=== PATIENT | female | born 1980 | race Caucasian/White ===

== ENCOUNTER → 2020-07-03 16:16 | Outpatient (CLI) | payer BC, SELFPAY ==
[2020-07-04 09:33] LABS: Adenovirus,PCR Not Detected (NotDetected); Bordetella Pertussis Not Detected (NotDetected); Chlamydophila Pneumoniae, PCR Not Detected (NotDetected); Coronavirus 229E Not Detected (NotDetected); Coronavirus NL63 Not Detected (NotDetected); Coronavirus OC43 Not Detected (NotDetected); Coronovirus HKU1,PCR Not Detected (NotDetected); Human Metapneumovirus Not Detected (NotDetected); Influenza A, PCR Not Detected (NotDetected); Influenza AH1, 2009 Not Detected (NotDetected); Influenza AH1, PCR Not Detected (NotDetected); Influenza AH3,PCR Not Detected (NotDetected); Influenza B, PCR Not Detected (NotDetected); Mycoplasma Pneumoniae, PCR Not Detected (NotDetected); Parainfluenza 1, PCR Not Detected (NotDetected); Parainfluenza 2, PCR Not Detected (NotDetected); Parainfluenza 3, PCR Not Detected (NotDetected); Parainfluenza 4, PCR Not Detected (NotDetected); Respiratory Syncytial Virus Not Detected (NotDetected); Rhinovirus/Enterovirus Not Detected (NotDetected)
[2020-07-04 11:05] LABS: Coronavirus 19, PCR Detected (NotDetected)
== END ==
PROVIDERS: PCP Nurse Practitioner; Visit Provider Nurse Practitioner
DX: Z20.828 Contact with and (suspected) exposure to other viral communicable diseases (principal); U07.1 COVID-19
CPT/HCPCS: 87581; 87633; 87798; U0003; U0004

== ENCOUNTER → 2022-04-03 10:22 | Outpatient (CLI) | payer OTHER, SELFPAY ==
--- NOTE | 2022-04-03 10:31 | XR_ITS ---
FINAL REPORT CLINICAL HISTORY: LET FOOT PAIN FINDINGS: Left ankle Three views were obtained. Again identified is an acute fracture involving the proximal aspect of the 5th metatarsal. No ankle fracture is identified. The joint spaces appear normal. No soft tissue abnormality is identified. IMPRESSION: Fracture of the 5th metatarsal. Reviewed, Interpreted and Dictated by Oz Monzon III, MD Transcribed by Halle Holt Authenticated and [facility]
--- NOTE | 2022-04-03 10:31 | XR_ITS ---
FINAL REPORT CLINICAL HISTORY: LEFT FOOT PAIN FINDINGS: Left foot Three views were obtained. There is an acute fracture involving the proximal aspect of the 5th metatarsal. The joint spaces appear normal. No soft tissue abnormality is identified. IMPRESSION: Fracture as above. Reviewed, Interpreted and Dictated by Oz Monzon III, MD Transcribed by Halle Holt Authenticated and [facility]
== END ==
LOC: RAD 10:27
PROVIDERS: PCP Family Medicine; Visit Provider Family Medicine
DX: M79.672 Pain in left foot (principal); M25.572 Pain in left ankle and joints of left foot
CPT/HCPCS: 73610; 73630

== ENCOUNTER → 2022-04-17 10:18 | Outpatient (CLI) | payer OTHER, SELFPAY ==
--- NOTE | 2022-04-17 10:36 | XR_ITS ---
FINAL REPORT CLINICAL HISTORY: 5TH METATARSAL FX COMPARISON: April 03, 2022 FINDINGS: LEFT FOOT: Three views of the left foot were obtained. There is a transverse fracture at the base of the 5th metatarsal with up to 3 mm of distraction. There is mild lateral displacement of the proximal fracture fragment which is stable. There is no callus formation. The joint spaces are intact. There is no soft tissue abnormality. IMPRESSION: Fracture at the base of the 5th metatarsal without callus formation. Reviewed, Interpreted and Dictated by Oz Monzon III, MD Transcribed by Sue Cao Authenticated and . [facility]
--- NOTE | 2022-04-17 10:36 | XR_ITS ---
FINAL REPORT CLINICAL HISTORY: .5TH METATARSAL FX COMPARISON: April 03, 2022 FINDINGS: LEFT ANKLE: Three views of the left ankle were obtained. There is a transverse fracture at the base of the 5th metatarsal with up to 3 mm of distraction. The joint spaces and mortise are intact. There is no soft tissue abnormality. IMPRESSION: Fracture at the base of the 5th metatarsal. Reviewed, Interpreted and Dictated by Oz Monzon III, MD Transcribed by Sue Cao Authenticated and [facility]
== END ==
PROVIDERS: PCP Family Medicine; Visit Provider Family Medicine
DX: M79.672 Pain in left foot (principal); M25.572 Pain in left ankle and joints of left foot
CPT/HCPCS: 73610; 73630

== ENCOUNTER → 2022-05-14 09:24 | Outpatient (CLI) | payer OTHER, SELFPAY ==
--- NOTE | 2022-05-14 09:43 | XR_ITS ---
FINAL REPORT CLINICAL HISTORY: FX OF 5TH METATARSAL, FOLLOW-UP COMPARISON: 04/17/2022 FINDINGS: LEFT FOOT Three views demonstrate a transverse fracture of the proximal 5th metatarsal. Bony alignment is stable. There is no significant callus formation. No new bony abnormality is seen. IMPRESSION: Redemonstration of transverse fracture of the proximal 5th metatarsal. Reviewed, Interpreted and Dictated by Oz Monzon III, MD Transcribed by Laure Dubois Authenticated and . [facility]
== END ==
PROVIDERS: PCP Family Medicine; Visit Provider Family Medicine
DX: S92.335A Nondisplaced fracture of third metatarsal bone, left foot, initial encounter for closed fracture (principal)
CPT/HCPCS: 73630

== ENCOUNTER → 2022-05-15 16:19 | Outpatient (CLI) | payer OTHER, SELFPAY ==
--- NOTE | 2022-05-15 16:21 | MR_ITS ---
PROCEDURE INFORMATION: Exam: MR Left Lower Extremity Other Than Joint Without Contrast; Foot Exam date and time: 05/15/2022 4:28 PM Age: 41 years old Clinical indication: Pain; Foot; Left; Additional info: Pain, non healing FX TECHNIQUE: Imaging protocol: Magnetic resonance imaging of the Left lower extremity without contrast. Exam focused on the foot. COMPARISON: CR XR FOOT LT MIN 3V 05/14/2022 9:48 AM FINDINGS: Bones and cartilage: Marrow edema is identified involving the 5th metatarsal bone, with fracture of the 5th metatarsal base. This fracture is mildly displaced. Motion artifact limits this study. Small foci of STIR hyperintensity are seen within the calcaneus anteriorly, consistent with benign vascular remnants. No dislocation of the foot. Joint spaces: Small small effusions at the 1st through 5th MTP joints. Small effusions at the tibiotalar and subtalar joints. LIGAMENTS: Spring ligament complex: Fluid is seen within the spring ligament recess. Lisfranc ligament: No evidence of tear. TENDONS: Flexor tendons of foot: A subcentimeter cystic collection of fluid is identified adjacent to the flexor digitorum tendon, without visualized tendon tear. Tibialis posterior tendon: Mild tenosynovitis of the posterior tibialis tendon. Peroneal tendons: There is mild swelling adjacent to the peroneus brevis tendon, without visualized tear. The no visualized tear of the peroneus longus tendon. Extensor tendons of foot: No evidence of tear. Tibialis anterior tendon: Unremarkable as visualized. Achilles tendon: Minimal heterogeneous signal intensity of the Achilles tendon, consistent with tendinosis. Tarsal canal (Sinus tarsi): Small amount of fluid within the sinus tarsi. Soft tissues: Minimal fluid within the deep infrapatellar bursa. Mild soft tissue swelling of the lateral midfoot and proximal forefoot. Plantar fascia: Intact, as visualized. IMPRESSION: 1. Marrow edema is identified involving the 5th metatarsal bone, with fracture of the 5th metatarsal base. This fracture is mildly displaced. 2. Mild tenosynovitis of the posterior tibialis tendon. 3. Mild soft tissue swelling of the lateral midfoot and proximal forefoot. 4. Small effusions. 5. Additional findings described above.
== END ==
PROVIDERS: PCP Family Medicine; Visit Provider Podiatrist
DX: M79.672 Pain in left foot (principal); M67.88 Other specified disorders of synovium and tendon, other site; S86.312A Strain of muscle(s) and tendon(s) of peroneal muscle group at lower leg level, left leg, initial encounter; S92.352A Displaced fracture of fifth metatarsal bone, left foot, initial encounter for closed fracture; S93.402A Sprain of unspecified ligament of left ankle, initial encounter; T14.8XXA Other injury of unspecified body region, initial encounter
CPT/HCPCS: 73718

== ENCOUNTER → 2022-05-19 15:54 | Outpatient (CLI) | payer OTHER, SELFPAY ==
--- NOTE | 2022-05-19 16:05 | ECG_ITS ---
APPROVED REPORT Exam: Resting ECG HR:88 bpm ECG Measurements Heart Rate 88 AXES WA 143 P 47 QRSd 84 QRS 66 QT 363 T 37 QTc 409 Conclusion SINUS RHYTHM NONSPECIFIC T-WAVE ABNORMALITY BORDERLINE ECG UNCONFIRMED REPORT Electronically signed by : Bill Ellis MD 05/20/2022 21:10:26
--- NOTE | 2022-05-19 16:24 | XR_ITS ---
PROCEDURE INFORMATION: Exam: XR Chest Exam date and time: 05/19/2022 4:29 PM Age: 41 years old Clinical indication: Screening exam; Other screening; Additional info: Pre op; Smoker TECHNIQUE: Imaging protocol: Radiologic exam of the chest. Views: 2 views. COMPARISON: No relevant prior studies available. FINDINGS: Lungs: Unremarkable. No consolidation. Pleural spaces: Unremarkable. No pleural effusion. No pneumothorax. Heart/Mediastinum: Unremarkable. No cardiomegaly. Bones/joints: Unremarkable. IMPRESSION: No acute findings.
[2022-05-19 17:49] LABS: Basophils # 0.1 K/mm3 (0-0.2); Basophils % 1.1 % (0.1-2.0); Eosinophils # 0.3 K/mm3 (0.0-0.4); Eosinophils % 3.1 % (0.1-12.0); Hematocrit 42.3 % (37.0-47.0); Lymphocytes # 2.7 K/mm3 (0.7-4.5); Lymphocytes % 28.5 % (10-50); Mean Corpuscular Hemoglobin 31.4 pg (27.0-31.2); Mean Corpuscular Volume 95.2 fl (81-99); Mean Platelet Volume 8.2 fl (7.4-10.4); Monocytes # 0.5 K/mm3 (0.1-1.0); Neutrophils # 5.8 K/mm3 (1.8-7.8); Neutrophils % 62.4 % (37.0-80.0); Platelet Count 412 K/mm3 (142-424); Red Blood Count 4.45 M/mm3 (4.20-5.40); Red Cell Distribution Width 13.6 % (11.5-17.5); White Blood Count 9.3 K/mm3 (4.8-10.8)
[2022-05-19 18:39] LABS: Alanine Aminotransferase 18 U/L (12-78); Albumin Level 4.7 g/dl (3.5-5.0); Albumin/Globulin Ratio 1.8 (1.1-1.8); Alkaline Phosphatase 108 U/L (38-126); Anion Gap 14.2 mEq/L (5-15); Aspartate Amino Transferase 30 U/L (14-36); Bilirubin,Total 0.7 mg/dl (0.2-1.3); Blood Urea Nitrogen 14 mg/dl (7-17); Calcium 9.8 mg/dl (8.4-10.2); Carbon Dioxide 31 mmol/L (22.0-30.0); Chloride 97 mmol/L (98-107); Estimated Glomerular Filt Rate 80 ml/min (>60); GFR (African American) 97 ML/MIN (>60); Globulin 2.6 g/dL (1.3-3.2); Glucose 74 mg/dl (74-100); Potassium 4.2 mmoL/L (3.5-5.1); Sodium 138 mmol/L (136-145); Total Protein,Serum 7.3 g/dl (6.3-8.2)
[2022-05-19 22:54] LABS: Urine Pregnancy, HCG Qual. Negative (Negative)
== END ==
PROVIDERS: PCP Family Medicine; Visit Provider Podiatrist
DX: Z01.818 Encounter for other preprocedural examination (principal); Z20.822 Contact with and (suspected) exposure to COVID-19; M79.672 Pain in left foot; S92.352A Displaced fracture of fifth metatarsal bone, left foot, initial encounter for closed fracture; T14.8XXA Other injury of unspecified body region, initial encounter; S86.312A Strain of muscle(s) and tendon(s) of peroneal muscle group at lower leg level, left leg, initial encounter
CPT/HCPCS: 36415; 71046; 80053; 81025; 85025; 93005; C9803; U0003; U0005

== ENCOUNTER 2022-05-21 09:45 | Day surgery (SDC) | payer OTHER, SELFPAY ==
[2022-05-19 15:37] VITALS: BMI 26.2
[2022-05-21] VITALS (11 sets, daily range): BP systolic 94–147; BP diastolic 64–99; PULSE 68–124; RESP 8–18; TEMP 36.6–38; O2SAT 93–97
--- NOTE | 2022-05-21 11:18 | XR_ITS ---
FINAL REPORT CLINICAL HISTORY: sp 5th met ORIF COMPARISON: May 14, 2022 FINDINGS: 3 views of the left foot were obtained. There has been interval placement of a sideplate and screws securing a fracture fragment at the base of the 5th metatarsal. Overlying cast material obscures bony detail. There appears to be good anatomic alignment. IMPRESSION: Postoperative change of the base of the 5th metatarsal. Reviewed, Interpreted and Dictated by Srinivasa Felton MD Transcribed by Alex Mayberry Authenticated and [facility]
--- NOTE | 2022-05-21 11:23 | P.PN_ITS ---
[facility] Medical History Anxiety Depression History of gastroesophageal reflux (GERD) HTN (hypertension), benign Urinary tract infection Surgical History H/O: Family History Other Diabetes Hypertension Social History Smoking Status: Current every day smoker tobacco type: cigarettes packs per day: 1 alcohol intake: current substance use type: denies use current occupational status: employed Travel in the last 8 weeks: None [facility] Anesthesia Checklist Patient Identification Patient Identification: Arm Band and Verbal (Name & ) Structural Data Admitted From: Home Planned Operative Procedure/s: ORIF Consent for Planned Operative Procedure(s) Verified: Yes Verified Documents: Surgical Consent NPO Status Verified Time NPO: 00:00 Chart Verification Results Verified: CBC, BMP and HCG Additional verifications Anesthesia Reactions: Yes (N/V) Hx Blood Transfusions: No Blood Transfusion Reaction: No Airway Assessment C-Spine Mobility Assessed: Yes TMJ Mobility Assessed: Yes Dentition: Good Dentition Neurological Assessment Level of Consciousness: Awake Hx Seizures: No Numbness or tingling in extremities: No Anesthesia Plan Anesthesia Risk discussed: Yes Anesthesia Plan: Verified ASA Class: II Anesthesia Type: General w/block
--- NOTE | 2022-05-21 12:39 | SUR.OPER ---
LATE ENTRY [id number] family given an update by Karishma Bright RN
--- NOTE | 2022-05-21 12:57 | SUR.OPER ---
1257 family given an update by Scott Perera RN Dr. Foy notified that tourniquet time is one hour.
--- NOTE | 2022-05-21 13:52 | XR_ITS ---
FINAL REPORT CLINICAL HISTORY: ORIF LEFT 5TH METATARSAL IN OR FLUORO TIME-1.43 FINDINGS: Fluoroscopic guidance was provided for the operating services. Two spot films were provided. 1 minute 43 seconds of fluoroscopy time was utilized. IMPRESSION: 1 minute 43 seconds of fluoroscopy time. Reviewed, Interpreted and Dictated by Srinivasa Felton MD Transcribed by Alex Mayberry Authenticated and [facility]
--- NOTE | 2022-05-21 14:08 | SUR.OPER ---
LATE ENTRY 1320 family given an update by Delmis Way RN
--- NOTE | 2022-05-21 14:15 | EXP.OP.NOTE ---
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 Her first x-ray 04/03/2022 showed an acute left proximal phalanx fifth metatarsal fracture. She did see her PCP who put her in a fracture boot. After weeks of no healing or callus formation on x-ray he referred her for evaluation. MRI showed there is no callus to signify healing. Explained there is some fluid around the tendon without obvious tear/rupture. Discussed conservative or surgical treatment. Patient has had 7 weeks of failed conservative care. We discussed surgery. All risks and benefits were discussed including but not limited to: damage to blood vessels and nerves, bleeding, infection, wound complications, delayed, mal or non-union of bone, post-traumatic arthritis, need for further surgery, implant failure, need for removal of implant, prolonged or permanent swelling of the extremity, prolonged or permanent pain or deformity, recurrence of deformity, refracture, CRPS/RSD, DVT/PE, and anesthetic complications including . No guarantees were given. All questions fully answered. The patient verbalized understanding and agreed to proceed with surgery. Consent was obtained. Necessary labs and pre-op testing ordered: hcg, CBC, BMP, EKG, CXR, covid. Patient has fracture boot. Was dispensed crutches in office Thursday Operative findings:: Separate incision made over the peroneal tendon under the distal fibula. On the peroneus brevis tendon, there was an area about 1 cm tear not full thickness, no rupture noted. Tear was repaired with suture. Some tenosynovitis noted around the longus. Fifth metatarsal base fracture had some comminution. There was 2 main fracture fragments with 2 secondary fracture fragments which were comminuted. The bone quality was very poor at the fracture site. No evidence of infection. Due to the bone quality and the fact that it was a 7 weeks post injury, graft was utilized and the area was fixated with a plate. Operative note:: On this date and time patient was deemed an appropriate surgical candidate. A pre-operative popliteal regional nerve block was given by anesthesia. With informed consent signed, the patient was taken to the operating theater and positioned supine. General anesthesia induced. Tourniquet was applied to the left mid-calf @225mmHg. The left lower extremity was prepped and draped in normal sterile fashion. Left peroneal (brevis) repair, peroneus longus tenosynovectomy, application of amniotic graft: Incision was made under the distal fibula. Dissection with care to maintain surgical hemostasis and safely retract neurovascular structures. Peroneal tendons identified. The longus had some tenosynovitis noted. It was sharply excisionally debrided with 15 blade, forceps. The brevis tendon was identified and there was a less than 1 cm longitudinal tear noted. Tear was not full-thickness.Wounds were flushed with saline. Vicryl used to reapproximate the tear. A piece of graft was then cut and laid over the tear to prevent adhesions and aid in healing. 15 cc of 0.5% Marcaine plain given as ankle block. Left 5th Metatarsal ORIF, application of bone allograft: Attention was directed to the dorsal foot, where intra-op fluoroscopy was used to map out the 5th metatarsal on both the AP, MO and lateral views. Linear incision over the fifth metatarsal fracture site.
--- NOTE | 2022-05-21 14:32 | SUR.PHASEI ---
1425- detailed report called to terence fernandez in post op 1426- pt left in stable condition with terence fernadnez in post op at this time
--- NOTE | 2022-05-22 09:48 | P.PNANES_ITS ---
[facility] Anesthesia Record Part II Anesthesia Record Part II Discharge Time: 14:25 Destination: Surgical Day Care (OP Surgery) PACU nurse assessment reviewed?: Yes Patient Condition:: Good Anesthesia Complications:: None Swallowing reflex intact?: Yes Cyanosis?: No Blood Pressure: 144/71 Pulse Rate: 117 Temperature: 98.7 F Mental Status: Alert & Oriented Pain level:: 0 Nausea and/or vomitting:: None Intake, IV Amount: 0
[2022-05-22 09:50] VITALS: BP 144/71; PULSE 117; TEMP 37.1
== END 2022-05-21 15:15 | disposition home or self-care (01) ==
PROVIDERS: PCP Family Medicine; Visit Provider Podiatrist
PROC: (CPT 28485; principal; 2022-05-21 11:30)
DX: S92.352A Displaced fracture of fifth metatarsal bone, left foot, initial encounter for closed fracture (principal); F17.210 Nicotine dependence, cigarettes, uncomplicated; Z79.899 Other long term (current) drug therapy; I10 Essential (primary) hypertension; M67.88 Other specified disorders of synovium and tendon, other site; W19.XXXA Unspecified fall, initial encounter; S86.312A Strain of muscle(s) and tendon(s) of peroneal muscle group at lower leg level, left leg, initial encounter
CPT/HCPCS: 28485; 27659; 28086; 73620; 73630; 76000; 96374; C1713; C1776; J2405; Q4211

== ENCOUNTER → 2022-06-16 12:22 | Outpatient (CLI) | payer OTHER, SELFPAY ==
--- NOTE | 2022-06-16 12:28 | XR_ITS ---
FINAL REPORT CLINICAL HISTORY: post op lt foot f/u COMPARISON: May 2022 FINDINGS: LEFT FOOT Three views were obtained. There are postoperative changes of the proximal 5th metatarsal. There is a screw plate and multiple screws. There is increased callus formation lateral to the screw plate. IMPRESSION: Postoperative changes with adjacent increased callus formation. Reviewed, Interpreted and Dictated by Oz Monzon III, MD Transcribed by Alex Mayberry Authenticated and . [facility]
== END ==
PROVIDERS: PCP Family Medicine; Visit Provider Podiatrist
DX: M79.672 Pain in left foot (principal); R60.9 Edema, unspecified; S86.312D Strain of muscle(s) and tendon(s) of peroneal muscle group at lower leg level, left leg, subsequent encounter
CPT/HCPCS: 73630

== ENCOUNTER → 2022-06-16 13:39 | Outpatient (CLI) | payer OTHER, SELFPAY ==
[2022-06-16 15:18] LABS: Basophils # 0.1 K/mm3 (0-0.2); Basophils % 1.3 % (0.1-2.0); Eosinophils # 0.5 K/mm3 (0.0-0.4); Eosinophils % 4.7 % (0.1-12.0); Hematocrit 41.3 % (37.0-47.0); Hemoglobin 13.2 g/dL (12.2-16.2); Lymphocytes # 3.7 K/mm3 (0.7-4.5); Mean Corpuscular HGB Conc 31.9 g/dL (31.8-35.4); Mean Corpuscular Hemoglobin 29.9 pg (27.0-31.2); Mean Corpuscular Volume 93.6 fl (81-99); Mean Platelet Volume 8.9 fl (7.4-10.4); Monocytes # 0.5 K/mm3 (0.1-1.0); Monocytes % 4.8 % (1.7-9.3); Neutrophils # 4.7 K/mm3 (1.8-7.8); Neutrophils % 50.1 % (37.0-80.0); Platelet Count 454 K/mm3 (142-424); Red Blood Count 4.41 M/mm3 (4.20-5.40); Red Cell Distribution Width 13.3 % (11.5-17.5); White Blood Count 9.4 K/mm3 (4.8-10.8)
[2022-06-16 15:41] LABS: Chloride 100 mmol/L (98-107); Sodium 139 mmol/L (136-145)
[2022-06-16 15:42] LABS: Potassium 4.6 mmoL/L (3.5-5.1)
[2022-06-16 15:43] LABS: Erythrocyte Sedimentation Rate 14 mm/hr (0-20)
[2022-06-16 15:44] LABS: Alanine Aminotransferase 16 U/L (12-78); Alkaline Phosphatase 106 U/L (38-126); Aspartate Amino Transferase 37 U/L (14-36); Bilirubin,Total 0.5 mg/dl (0.2-1.3); Blood Urea Nitrogen 10 mg/dl (7-17); Estimated Glomerular Filt Rate 111 ml/min (>60); GFR (African American) 135 ML/MIN (>60)
[2022-06-16 15:45] LABS: Albumin Level 4.8 g/dl (3.5-5.0); Anion Gap 14.6 mEq/L (5-15); Calcium 9.1 mg/dl (8.4-10.2); Carbon Dioxide 29 mmol/L (22.0-30.0); Globulin 2.4 g/dL (1.3-3.2); Glucose 90 mg/dl (74-100); Total Protein,Serum 7.2 g/dl (6.3-8.2)
[2022-06-16 15:51] LABS: C-Reactive Protein 2.2 mg/L (0-4)
== END ==
PROVIDERS: PCP Family Medicine; Visit Provider Podiatrist
DX: T81.40XA Infection following a procedure, unspecified, initial encounter (principal)
CPT/HCPCS: 36415; 80053; 85025; 85651; 86140

== ENCOUNTER 2022-06-25 06:05 | Day surgery (SDC) | payer OTHER, SELFPAY ==
[2022-06-25] VITALS (7 sets, daily range): BP systolic 91–143; BP diastolic 67–99; PULSE 80–99; RESP 14–18; TEMP 36.3–43; O2SAT 94–100; BMI 25.7
[2022-06-25 06:24] LABS: Urine Pregnancy, HCG Qual. Negative (Negative)
--- NOTE | 2022-06-25 07:04 | P.PN_ITS ---
PFSH PFS Medical History Anxiety Depression History of gastroesophageal reflux (GERD) HTN (hypertension), benign Urinary tract infection Surgical History H/O foot surgery H/O: [place] teeth removed Family History Other Diabetes Hypertension Social History Smoking Status: Current every day smoker tobacco type: cigarettes packs per day: 1 pack-years: 20 alcohol intake: never substance use type: denies use current occupational status: unemployed Travel in the last 8 weeks: None caffeine: Yes [facility] Anesthesia Checklist Patient Identification Patient Identification: Arm Band and Verbal (Name & ) Structural Data Admitted From: Home Planned Operative Procedure/s: I & D Left foot Consent for Planned Operative Procedure(s) Verified: Yes NPO Status Verified Time NPO: 00:00 Chart Verification Results Verified: HCG Additional verifications Anesthesia Reactions: Yes (n/v) Hx Blood Transfusions: No Blood Transfusion Reaction: No Airway Assessment C-Spine Mobility Assessed: Yes TMJ Mobility Assessed: Yes Dentition: Good Dentition Neurological Assessment Level of Consciousness: Awake Hx Seizures: No Numbness or tingling in extremities: No Anesthesia Plan Anesthesia Risk discussed: Yes Anesthesia Plan: Verified ASA Class: II Anesthesia Type: MAC
--- NOTE | 2022-06-25 08:20 | EXP.OP.NOTE ---
Date of procedure: 06/25/22 Pre-op Diagnosis:: Left foot foreign body reaction Left foot allergic reaction Left foot cellulitis Status post left fifth metatarsal ORIF 05/21/2022 Post-op Diagnosis:: Same Procedure performed:: Left foot incision and drainage below fascia single bursa space ([id number]) Left foot I&D soft tissue abscess below deep fascia (2004) Removal of foreign body ([id number]) Wound debridement/scar revision Surgeon:: Lucila Foy DPM CIVIL GEOTECHNICAL ENGINEER:: Joni Babcock Anesthesia: MAC and local (0.5% marcaine plain) Estimated blood loss (mL): 10 Clinical Note:: Patient is a 41-year-old female who had left fifth metatarsal ORIF on 05/21/2022.? Patient reports continued redness pain and swelling to the incision site.? Infection markers are within normal limits. No labs that correlate with cellulitis. Discussed suture abscess and the possibility of an allergic reaction, foreign body reaction or skin irritation from the sutures. Discussed surgery for I&D and sutural removal with delayed primary closure with nonabsorbable sutures. X-rays reviewed and discussed with the patient. Conservative treatment discussed but not recommended as she has failed oral antibiotics, local wound care, NSAIDs, Medrol Dosepak and topical steroids. We discussed surgery. All risks and benefits were discussed including but not limited to: damage to blood vessels and nerves, bleeding, infection, wound complications, delayed, mal or non-union of bone, post-traumatic arthritis, need for further surgery, implant failure, need for removal of implant, prolonged or permanent swelling of the extremity, prolonged or permanent pain or deformity, CRPS/RSD, DVT/PE, and anesthetic complications including . No guarantees were given. All questions fully answered. The patient verbalized understanding and agreed to proceed with surgery. Consent was obtained. Operative findings:: The left lateral foot and ankle incisions have periincisional edema, erythema. No charo wound dehiscence noted. There was a previous suture abscess noted. The suture lines were opened and no purulence or drainage appreciated. The tissue did not look overly synovitic. Mild inflammatory tissue to the distal incision. 15 blade and forceps used to sharply excisionally debride inflammatory tissue through skin into/including subcutaneous tissue approximately 0.3 cm deep. A piece of the tissue was removed and sent for tissue culture. No deep tracking deep opening consistent with abscess. The skin and subcutaneous sutures were removed. A 0.2 x 0.2 x 0.5 cm incision was made into the deep fascia and the distal most incision. Again no tracking or deep signs of infection appreciated. Wound flushed with gentamicin irrigation. Skin and scar revised. At the time of the skin closure the edema and erythema was noted to be much improved. This was a case performed during the postoperative period unrelated to the ORIF, i.e. nothing done with the bone today. Unlikely an infectious process as the preoperative labs were all within normal limits with no elevated white count, ESR or CRP. Tissue did show evidence of some inflammation. Likely allergic reaction secondary to the suture. Operative note:: On this date and time patient was deemed an appropriate surgical candidate. With informed consent signed, the patient was taken to the operating theater and positioned supine. MAC anesthesia induced. Tourniquet was applied to the left mid-calf @225mmHg. Tourniquet not utilized/inflated. IV vancomycin infused. The left lower extremity was prepped and draped in normal sterile fashion. Left foot I&D, removal of foreign body: 30 cc of half percent Marcaine plain were infiltrated around the incision and an ankle block prior to start of the case. 15 blade and forceps used to make an incision along prior incision incisions x2. One incision was about 4 x 0.2 x 0.3 cm deep. The proximal incision was 2 x 0.2 x 0.3 cm deep. Dissection carried down
--- NOTE | 2022-06-25 08:21 | XR_ITS ---
FINAL REPORT CLINICAL HISTORY: Post op COMPARISON: June 16, 2022 FINDINGS: 3 views of the left foot were obtained. Postoperative changes are again seen involving the proximal 5th metatarsal. There is a screw plate and multiple screws. There is stable callus formation adjacent to the screw plate. There are questionable chronic fractures of the 2nd, 3rd, and 4th proximal phalanges. There is persistent lack of bony union of the proximal 5th metatarsal, stable from prior. IMPRESSION: Stable postoperative changes. Reviewed, Interpreted and Dictated by Oz Monzon III, MD Transcribed by Alex Mayberry Authenticated and [facility]
--- NOTE | 2022-06-25 10:03 | SUR.OPER ---
0800- pt updated of pt current status via terence szymanski in pre op
== END 2022-06-25 09:10 | disposition home or self-care (01) ==
PROVIDERS: PCP Family Medicine; Visit Provider Podiatrist
PROC: (CPT 28002; principal; 2022-06-25 07:30)
DX: T81.41XA Infection following a procedure, superficial incisional surgical site, initial encounter (principal); Y83.8 Other surgical procedures as the cause of abnormal reaction of the patient, or of later complication, without mention of misadventure at the time of the procedure; Y79.3 Surgical instruments, materials and orthopedic devices (including sutures) associated with adverse incidents; Z79.899 Other long term (current) drug therapy; F17.210 Nicotine dependence, cigarettes, uncomplicated
CPT/HCPCS: 28002; 28192; 73630; 81025; 87070; 87205; 96374; J3370

== ENCOUNTER 2022-07-05 00:36 | Emergency (ER) | payer OTHER, SELFPAY ==
[2022-07-05 00:49] VITALS: BP 163/96; PULSE 124; O2SAT 98
[2022-07-05 00:58] VITALS: BP 163/96; PULSE 122; RESP 18; TEMP 36.9; O2SAT 97; BMI 26.6
--- NOTE | 2022-07-05 01:18 | HMH.EDGENADL ---
Discharge Plan Disposition Patient Disposition: Home, Self-Care Condition: Good Chief Complaint: Wound/Laceration Prescriptions Prescriptions: No Action losartan-hydrochlorothiazide 50-12.5 mg tablet 1 tab PO DAILY triamcinolone acetonide 0.1 % cream 1 applic topical BID 21 Days Qty: 30 0RF sulfamethoxazole-trimethoprim [Bactrim DS] 800-160 mg tablet 1 tab PO BID 7 Days Qty: 14 0RF Rx Instructions: Start on 06/26/22 hydrocodone-acetaminophen 7.5-325 mg tablet 1 tab PO Q6H PRN (Reason: pain (scale score 7-10)) 5 Days Qty: 20 0RF ibuprofen 800 mg tablet 800 mg PO BID Qty: 60 3RF bupropion HCl 150 mg tablet extended release 24 hr 150 mg PO DAILY venlafaxine 225 mg tablet extended release 24hr 225 mg PO DAILY Referrals Follow up/Referrals: Shaun Henriquez MD [Primary Care Provider] - See instructions Clinical Impressions Clinical Impression: Status post left foot surgery Instructions Patient Instructions: How to Care for a Surgical Wound Discharge ED Provider: Manuel Dominguez General Adult HPI General Chief complaint: Wound/Laceration Stated complaint: Surgery on left foot, ? infection Time Seen by Provider: 07/05/22 00:58 Mode of Arrival: Ambulatory Source of Information: Patient Limitations: No Limitations Description of Symptoms (Recalled from ER Triage Doc. by RN): Pt had surgery on outer left side of left foot in May (10 days ago per pt). Pt was to see (who performed the surgery) on Sunday 07/08 to get her bandange removed. Bandage accidentally fell off tonight per pt and she was concerned with the redness she noticed in her incision. Also c/o white area around incision. History of Present Illness HPI narrative: 41yo F presents to the emergency department secondary to her bandage fall off after surgery on her foot. Reports surgery was [address] Foy. Patient is concerned because there is a very small area of white tissue on the edge of the suture line. Reports she had very similar appearance in the past and required a second surgery. No fever, systemic signs of illness Related Data Home Medications Medication Instructions Recorded Confirmed losartan 50 mg-hydrochlorothiazide 1 tab PO DAILY High blood pressure 08/08/19 07/01/22 12.5 mg tablet bupropion HCl 150 mg 24 hr tablet, 150 mg PO DAILY Anxiety 05/19/22 07/01/22 extended release venlafaxine 225 mg tablet,extended 225 mg PO DAILY . 06/25/22 07/01/22 release 24 hr Previous Rx's Medication Instructions Recorded ibuprofen 800 mg tablet 800 mg PO BID pain, mild #60 tabs 05/20/22 triamcinolone acetonide 0.1 % 1 applic topical BID cellulitis 3 06/16/22 topical cream weeks #30 grams sulfamethoxazole 800 1 tab PO BID redness 7 days #14 06/23/22 mg-trimethoprim 160 mg tablet tabs (Bactrim DS) hydrocodone 7.5 mg-acetaminophen 1 tab PO Q6H PRN pain (scale score 07/01/22 325 mg tablet 7-10) 5 days #20 tabs Allergies Allergy/AdvReac Type Severity Reaction Status Date / Time stratafix suture Allergy Uncoded 06/25/22 07:22 PFSH PFSH Medical History Anxiety Depression History of gastroesophageal reflux (GERD) HTN (hypertension), benign Urinary tract infection Surgical History H/O foot surgery H/O: [place] teeth removed Family History Other Diabetes Hypertension Social History Smoking Status: Current every day smoker tobacco type: cigarettes packs per day: 1 pack-years: 20 alcohol intake: never substance use type: denies use current occupational status: unemployed Travel in the last 8 weeks: None caffeine: Yes ROS Obtained: Yes Systems reviewed as appropriate & no additional complaints except as documented 10 point RO
--- NOTE | 2022-07-05 01:33 | PC.NURSE ---
Reapplied a sterile dressing to patients surgical site on left foot. Cleaned with hibacleanse with chlorahexadine and applied a xeroform dressing an absorbent sterile dressing. Once dressing was applied an kassandra wrap was applied to cover dressing. Patient tolerated well.
[2022-07-05 01:37] VITALS: BP 135/85; PULSE 99; RESP 18; TEMP 37; O2SAT 99
== END 2022-07-05 01:44 | disposition home or self-care (01) ==
PROVIDERS: Emergency Provider Family Medicine; PCP Family Medicine
DX: S91.302A Unspecified open wound, left foot, initial encounter (principal); Z98.890 Other specified postprocedural states; Z79.899 Other long term (current) drug therapy; F41.9 Anxiety disorder, unspecified; I10 Essential (primary) hypertension; F32.A Depression, unspecified; K21.9 Gastro-esophageal reflux disease without esophagitis; Z83.3 Family history of diabetes mellitus; Z82.49 Family history of ischemic heart disease and other diseases of the circulatory system
CPT/HCPCS: 99282

== ENCOUNTER → 2022-07-08 12:29 | Outpatient (CLI) | payer OTHER, SELFPAY ==
--- NOTE | 2022-07-08 12:38 | XR_ITS ---
FINAL REPORT CLINICAL HISTORY: L foot surgery COMPARISON: 06/25/2022 FINDINGS: LEFT FOOT Three views of the left foot were obtained. A sideplate and screws are present securing the base of the 5th metatarsal. The fracture line remains visible in the base of the 5th metatarsal. There is overlying callus formation. The visualized joint spaces are normally aligned. The soft tissues are unremarkable. IMPRESSION: Postoperative changes as above with overlying callus formation. Reviewed, Interpreted and Dictated by Srinivasa Felton MD Transcribed by Mamie Thomas Authenticated and . [facility]
== END ==
PROVIDERS: PCP Family Medicine; Visit Provider Podiatrist
DX: S92.352A Displaced fracture of fifth metatarsal bone, left foot, initial encounter for closed fracture (principal)
CPT/HCPCS: 73630

== ENCOUNTER → 2022-07-14 12:48 | Outpatient (CLI) | payer OTHER, SELFPAY ==
[2022-07-14 13:41] LABS: Basophils # 0.1 K/mm3 (0-0.2); Eosinophils # 0.4 K/mm3 (0.0-0.4); Eosinophils % 3.6 % (0.1-12.0); Hematocrit 37.9 % (37.0-47.0); Hemoglobin 12.2 g/dL (12.2-16.2); Lymphocytes # 4.5 K/mm3 (0.7-4.5); Lymphocytes % 37.5 % (10-50); Mean Corpuscular HGB Conc 32.2 g/dL (31.8-35.4); Mean Corpuscular Volume 93.3 fl (81-99); Monocytes # 0.5 K/mm3 (0.1-1.0); Monocytes % 3.9 % (1.7-9.3); Neutrophils # 6.5 K/mm3 (1.8-7.8); Platelet Count 529 K/mm3 (142-424); Red Blood Count 4.06 M/mm3 (4.20-5.40); Red Cell Distribution Width 13.7 % (11.5-17.5); White Blood Count 12.1 K/mm3 (4.8-10.8)
[2022-07-14 14:16] LABS: Alanine Aminotransferase 13 U/L (12-78); Albumin Level 4.4 g/dl (3.5-5.0); Albumin/Globulin Ratio 1.9 (1.1-1.8); Alkaline Phosphatase 117 U/L (38-126); Anion Gap 14.5 mEq/L (5-15); Aspartate Amino Transferase 19 U/L (14-36); Bilirubin,Total 0.3 mg/dl (0.2-1.3); Blood Urea Nitrogen 15 mg/dl (7-17); Calcium 9.5 mg/dl (8.4-10.2); Carbon Dioxide 25 mmol/L (22.0-30.0); Chloride 101 mmol/L (98-107); Estimated Glomerular Filt Rate 111 ml/min (>60); GFR (African American) 135 ML/MIN (>60); Globulin 2.3 g/dL (1.3-3.2); Glucose 96 mg/dl (74-100); Potassium 3.5 mmoL/L (3.5-5.1); Sodium 137 mmol/L (136-145); Total Protein,Serum 6.7 g/dl (6.3-8.2)
[2022-07-14 14:22] LABS: C-Reactive Protein 2.2 mg/L (0-4)
[2022-07-14 14:29] LABS: Erythrocyte Sedimentation Rate 15 mm/hr (0-20)
== END ==
PROVIDERS: PCP Family Medicine; Visit Provider Podiatrist
DX: L02.612 Cutaneous abscess of left foot (principal); L03.116 Cellulitis of left lower limb
CPT/HCPCS: 36415; 80053; 85025; 85651; 86140

== ENCOUNTER → 2022-07-28 12:12 | Outpatient (CLI) | payer OTHER, SELFPAY ==
[2022-07-28 12:40] LABS: Basophils # 0.1 K/mm3 (0-0.2); Basophils % 1.1 % (0.1-2.0); Eosinophils # 0.4 K/mm3 (0.0-0.4); Eosinophils % 4.1 % (0.1-12.0); Hematocrit 34.6 % (37.0-47.0); Hemoglobin 11.2 g/dL (12.2-16.2); Lymphocytes % 29.5 % (10-50); Mean Corpuscular HGB Conc 32.3 g/dL (31.8-35.4); Mean Corpuscular Hemoglobin 29.9 pg (27.0-31.2); Mean Corpuscular Volume 92.4 fl (81-99); Mean Platelet Volume 8.1 fl (7.4-10.4); Monocytes # 0.4 K/mm3 (0.1-1.0); Monocytes % 3.8 % (1.7-9.3); Neutrophils # 6.3 K/mm3 (1.8-7.8); Neutrophils % 61.4 % (37.0-80.0); Platelet Count 447 K/mm3 (142-424); Red Blood Count 3.74 M/mm3 (4.20-5.40); Red Cell Distribution Width 13.7 % (11.5-17.5); White Blood Count 10.3 K/mm3 (4.8-10.8)
[2022-07-28 13:13] LABS: Chloride 105 mmol/L (98-107); Potassium 4.6 mmoL/L (3.5-5.1); Sodium 138 mmol/L (136-145)
[2022-07-28 13:16] LABS: Alanine Aminotransferase 14 U/L (12-78); Albumin Level 4.2 g/dl (3.5-5.0); Albumin/Globulin Ratio 1.8 (1.1-1.8); Alkaline Phosphatase 117 U/L (38-126); Anion Gap 8.6 mEq/L (5-15); Aspartate Amino Transferase 23 U/L (14-36); Blood Urea Nitrogen 11 mg/dl (7-17); Carbon Dioxide 29 mmol/L (22.0-30.0); Estimated Glomerular Filt Rate 93 ml/min (>60); GFR (African American) 113 ML/MIN (>60); Globulin 2.3 g/dL (1.3-3.2); Glucose 89 mg/dl (74-100); Total Protein,Serum 6.5 g/dl (6.3-8.2)
[2022-07-28 13:23] LABS: Bilirubin,Total 0.1 mg/dl (0.2-1.3)
[2022-07-28 15:48] LABS: Erythrocyte Sedimentation Rate 18 mm/hr (0-20)
[2022-09-01 20:11] LABS: Cotinine 106.2
== END ==
PROVIDERS: PCP Family Medicine; Visit Provider Podiatrist
DX: T81.49XA Infection following a procedure, other surgical site, initial encounter (principal); T81.31XA Disruption of external operation (surgical) wound, not elsewhere classified, initial encounter; Z72.0 Tobacco use
CPT/HCPCS: 36415; 80053; 80323; 85025; 85651; 86140

== ENCOUNTER → 2022-07-30 14:11 | Outpatient (CLI) | payer OTHER, SELFPAY ==
--- NOTE | 2022-07-30 14:14 | XR_ITS ---
FINAL REPORT CLINICAL HISTORY: foot pain, broke in February, hx of 2 foot surgeries COMPARISON: 06/25/2022 FINDINGS: LEFT FOOT Three views of the left foot were obtained. A screw plate and screws secure a fracture involving the base of the 5th metatarsal. The fracture line remains visible. There is some callus formation along the lateral aspect of the base of the 5th metatarsal. The joint spaces are preserved. The soft tissues are unremarkable. IMPRESSION: Findings similar to prior exam. Reviewed, Interpreted and Dictated by Srinivasa Felton MD Transcribed by Mamie Thomas Authenticated and [facility]
== END ==
PROVIDERS: PCP Family Medicine; Visit Provider Podiatrist
DX: M79.672 Pain in left foot (principal); T81.31XA Disruption of external operation (surgical) wound, not elsewhere classified, initial encounter; Z98.890 Other specified postprocedural states
CPT/HCPCS: 73630

== ENCOUNTER → 2022-08-07 10:23 | Outpatient (CLI) | payer OTHER, SELFPAY ==
--- NOTE | 2022-08-07 | US_ITS ---
FINAL REPORT CLINICAL HISTORY: RT DELMI=1.18 LT DELMI=1.15 RT TBI=0.80 LT TBI=0.82 Dampened pulses Distal waveforms abnormal FINDINGS: ANKLE-BRACHIAL PRESSURE INDICES Pressure indices are as follows: RIGHT LOWER EXTREMITY: Ankle-brachial pressure index: 1.2 Comments: Normal LEFT LOWER EXTREMITY: Ankle-brachial pressure index: 1.2 Comments: Normal CONCLUSION: No evidence of significant obstructive peripheral vascular disease of the lower extremities Reviewed, Interpreted and Dictated by Oz Monzon III, MD Transcribed by Mamie Thomas Authenticated and [facility]
== END ==
PROVIDERS: PCP Family Medicine; Visit Provider Podiatrist
DX: S92.352D Displaced fracture of fifth metatarsal bone, left foot, subsequent encounter for fracture with routine healing (principal); T81.31XD Disruption of external operation (surgical) wound, not elsewhere classified, subsequent encounter; Z98.890 Other specified postprocedural states
CPT/HCPCS: 93923

== ENCOUNTER → 2022-08-25 13:21 | Outpatient (CLI) | payer OTHER, SELFPAY ==
--- NOTE | 2022-08-25 13:28 | CT_ITS ---
FINAL REPORT CLINICAL HISTORY: evaluate fracture healing COMPARISON: Plain radiographs dated July 2022 FINDINGS: CT LEFT FOOT WITHOUT CONTRAST Technique: Axial images through the left foot were performed by computed tomography. Sagittal and coronal reconstruction images were performed. This study was performed with techniques to keep radiation doses as low as reasonably achievable (ALARA). Individualized dose reduction techniques using automated exposure control or adjustment of mA and/or kV according to the patient's size were employed. There is a subacute comminuted fracture of the proximal 5th metatarsal. There is a screw plate and multiple screws. There is a small area of partial bony fusion along the medial aspect. There is lack of fusion of most of the fracture lines. No dislocation identified. No significant degenerative changes identified. No soft tissue abnormality. IMPRESSION: Proximal 5th metatarsal fracture status post ORIF with partial bony fusion. Reviewed, Interpreted and Dictated by Oz Monzon III, MD Transcribed by Alex Mayberry Authenticated and . [facility]
== END ==
PROVIDERS: PCP Family Medicine; Visit Provider Podiatrist
DX: S92.352A Displaced fracture of fifth metatarsal bone, left foot, initial encounter for closed fracture (principal); T81.31XA Disruption of external operation (surgical) wound, not elsewhere classified, initial encounter; Z98.890 Other specified postprocedural states
CPT/HCPCS: 73700

== ENCOUNTER → 2022-09-22 12:59 | Outpatient (CLI) | payer OTHER, SELFPAY ==
--- NOTE | 2022-09-22 13:02 | XR_ITS ---
FINAL REPORT CLINICAL HISTORY: post op..pain FINDINGS: AP, oblique and lateral views of the left foot were obtained. Comparison is made to a prior exam dated July 2022. There are postoperative changes from ORIF at the base of 5th metatarsal. There has been interval healing of the fracture. There is slight increased lucency surrounding the 1st screw within the hardware. There is no other osseous abnormality. The joint spaces are preserved. There continues to be mild lateral soft tissue edema. IMPRESSION: ORIF at the base the 5th metatarsal with interval healing of the fracture and slight increased lucency surrounding the 1st orthopedic screw. Reviewed, Interpreted and Dictated by Jennie Escalante MD Transcribed by Alex Mayberry Authenticated and . [facility]
== END ==
PROVIDERS: PCP Family Medicine; Visit Provider Podiatrist
DX: M79.672 Pain in left foot (principal); S91.302A Unspecified open wound, left foot, initial encounter
CPT/HCPCS: 73630

== ENCOUNTER → 2022-10-21 13:23 | Outpatient (CLI) | payer OTHER, SELFPAY ==
--- NOTE | 2022-10-21 13:29 | XR_ITS ---
FINAL REPORT CLINICAL HISTORY: post op COMPARISON: 09/22/2022 FINDINGS: Left foot Three views were obtained. There is no acute fracture or dislocation. There are postop changes in the proximal 5th metatarsal with screw plate and multiple screws. Findings are stable since previous. IMPRESSION: Stable postsurgical change as above. Reviewed, Interpreted and Dictated by Oz Monzon III, MD Transcribed by Halle Holt Authenticated and [facility]
== END ==
PROVIDERS: PCP Family Medicine; Visit Provider Podiatrist
DX: S91.302A Unspecified open wound, left foot, initial encounter (principal)
CPT/HCPCS: 73630

== ENCOUNTER → 2023-01-06 13:35 | Outpatient (CLI) | payer OTHER, SELFPAY ==
--- NOTE | 2023-01-06 13:39 | XR_ITS ---
FINAL REPORT CLINICAL HISTORY: Foot Pain COMPARISON: 10/21/2022 FINDINGS: Left foot Three views were obtained. There are postoperative changes from ORIF of the 5th metatarsal base. There is persistent lucency of the 5th metatarsal base which would indicate nonunion of fracture. The joint spaces appear normal. No soft tissue abnormality is identified. IMPRESSION: ORIF of the 5th metatarsal base without radiographic union of fracture. Reviewed, Interpreted and Dictated by Jeanne Ortiz MD Transcribed by Halle Hlot Authenticated and [facility]
== END ==
PROVIDERS: PCP Family Medicine; Visit Provider Podiatrist
DX: M79.672 Pain in left foot (principal)
CPT/HCPCS: 73630

== ENCOUNTER → 2023-05-27 13:39 | Outpatient (CLI) | payer OTHER, SELFPAY ==
--- NOTE | 2023-05-27 13:42 | XR_ITS ---
FINAL REPORT CLINICAL HISTORY: foot pain COMPARISON: 01/06/2023 FINDINGS: AP, oblique and lateral views of the left foot were obtained. There is no prior exam for comparison. There is postoperative change from ORIF at the base of the fifth metatarsal. A fracture line is still visible. There is lucency surrounding the the proximal 2 orthopedic screws. IMPRESSION: No change in postoperative changes at the base of the fifth metatarsal. Reviewed, Interpreted and Dictated by Jennie Escalante MD Transcribed by Alex Mayberry Authenticated and [facility]
[2023-05-27 16:09] LABS: Alanine Aminotransferase 19 U/L (12-78); Albumin Level 4.3 g/dl (3.5-5.0); Albumin/Globulin Ratio 1.7 (1.1-1.8); Alkaline Phosphatase 111 U/L (38-126); Aspartate Amino Transferase 23 U/L (14-36); Bilirubin,Total 0.5 mg/dl (0.2-1.3); Blood Urea Nitrogen 14 mg/dl (7-17); Carbon Dioxide 27 mmol/L (22.0-30.0); Chloride 105 mmol/L (98-107); Estimated Glomerular Filt Rate 79 ml/min (>60); GFR (African American) 96 ML/MIN (>60); Globulin 2.5 g/dL (1.3-3.2); Glucose 117 mg/dl (74-100); Sodium 141 mmol/L (136-145); Total Protein,Serum 6.8 g/dl (6.3-8.2)
[2023-05-27 16:37] LABS: Basophils # 0.1 K/mm3 (0-0.2); Basophils % 0.6 % (0.1-2.0); Eosinophils # 0.5 K/mm3 (0.0-0.4); Eosinophils % 5.2 % (0.1-12.0); Hematocrit 41.2 % (37.0-47.0); Hemoglobin 13.2 g/dL (12.2-16.2); Lymphocytes # 2.8 K/mm3 (0.7-4.5); Lymphocytes % 32.3 % (10-50); Mean Corpuscular HGB Conc 32.1 g/dL (31.8-35.4); Mean Corpuscular Hemoglobin 28.3 pg (27.0-31.2); Mean Platelet Volume 8.1 fl (7.4-10.4); Monocytes # 0.4 K/mm3 (0.1-1.0); Neutrophils # 4.9 K/mm3 (1.8-7.8); Neutrophils % 56.8 % (37.0-80.0); Platelet Count 417 K/mm3 (142-424); Red Blood Count 4.68 M/mm3 (4.20-5.40); Red Cell Distribution Width 13.7 % (11.5-17.5); White Blood Count 8.6 K/mm3 (4.8-10.8)
[2023-05-27 17:59] LABS: Erythrocyte Sedimentation Rate 14 mm/hr (0-20)
[2023-05-29 13:07] LABS: C-Reactive Protein 6.2 mg/L (0-4)
== END ==
PROVIDERS: Nurse Practitioner Family; PCP Family Medicine; Visit Provider Podiatrist
DX: G89.18 Other acute postprocedural pain (principal); M79.672 Pain in left foot; L03.90 Cellulitis, unspecified
CPT/HCPCS: 36415; 73630; 80053; 85025; 85651; 86140